=== PATIENT | male | born 1950 | race Caucasian/White ===

== ENCOUNTER 2021-08-08 05:44 | Inpatient (IN) ==
[2021-08-03 11:54] LABS: Basophils # 0.1 10*3/uL (0.0-0.2); Basophils % 0.8 % (0.0-0.8); Eosinophils # 0.3 10*3/uL (0.0-0.87); Eosinophils % 3.3 % (0.00-10.9); Hematocrit 42.2 VOL% (42.0-52.0); Hemoglobin 14.4 GM/DL (14.0-18.0); Immature Granulocytes % 0.3 %; Immature Granulocytes Absolute 0.03 #; Lymphocytes # 2.5 10*3/uL (1.4-4.0); Mean Corpuscular HGB Conc 34.1 GM/DL (32-36); Mean Corpuscular Volume 93.8 FL (87-102); Mean Platelet Volume 11.5 FL (9.6-12.0); Monocytes # 0.9 10*3/uL (0.11-0.8); Monocytes % 10.6 % (1.7-12.7); Platelet Count 190 T/CUMM (130-400); Red Cell Distribution Width 14.8 % (9.3-17.3); White Blood Count 8.9 T/CUMM (4-12)
[2021-08-03 12:02] LABS: Albumin 3.3 G/DL (3.4-5.0); Bilirubin,Total 0.5 MG/DL (0.20-1.00); Osmolality,Calculated 279.4 MOS/KG (273-304); Potassium 3.6 MMOL/L (3.5-5.1)
[2021-08-08] MEDS ORDERED: ALVIMOPAN 12 MG CAPSULE PO ONE (06:00)
[2021-08-08] MEDS ORDERED: cefTRIAXone 1,000 MG in SODIUM CHLORIDE 0.9% 100 ML IV ONE (06:00)
[2021-08-08] MEDS: LACTATED RINGERS 1,000 ML IV SCH ×2 (06:30→10:31)
[2021-08-08] MEDS ORDERED: FAMOTIDINE 20 MG TABLET PO ONE (06:33)
[2021-08-08] MEDS ORDERED: LIDOCAINE 1% 5 ML VIAL ONE (06:37)
[2021-08-08] MEDS ORDERED: BUPIVACAINE MPF 0.25% 30 ML VIAL ONE (06:37)
[2021-08-08] MEDS ORDERED: DEXAMETHASONE 4 MG/1 ML VIAL ONE ×2 (06:37→10:46)
[2021-08-08] MEDS ORDERED: MIDAZOLAM 2 MG/2 ML VIAL ONE (06:47)
[2021-08-08] MEDS ORDERED: fentaNYL 100 MCG/2 ML VIAL ONE (06:47)
[2021-08-08] MEDS ORDERED: ROPIVACAINE 0.5% 30 ML VIAL ONE (06:50)
[2021-08-08] MEDS ORDERED: PHENYLEPHRINE DRIP 20 MG/250 ML PREMIX IV ONE (06:52)
[2021-08-08 08:35] LABS: Mucus,Urine Occasional /LPF (Occasional); Sperm,Urine Occasional /HPF (Negative)
[2021-08-08 08:36] LABS: Bilirubin,Urine Negative (Negative); Blood, Urine Trace mg/dL (Negative); Glucose,Urine (UA) Negative (Negative); Ketones,Urine Negative (Negative); Nitrite,Urine Negative (Negative); Protein,Urine 30 mg/dL (Negative); Urine Appearance Clear (Clear); Urine Color Yellow (Yellow); Urine Specific Gravity 1.025 (1.001-1.035); Urine Urobilinogen 0.2 eU/dL (<2.0)
[2021-08-08] MEDS ORDERED: ROCURONIUM 50 MG/5 ML VIAL IV ONE ×2 (09:36→10:24)
[2021-08-08] MEDS ORDERED: propofoL 200 MG/20 ML VIAL IV ONE (10:24)
[2021-08-08] MEDS ORDERED: LIDOCAINE 2% 5 ML VIAL ONE (10:24)
[2021-08-08] MEDS ORDERED: LACTATED RINGERS 1,000 ML IV ONE (10:25)
[2021-08-08] MEDS ORDERED: SEVOFLURANE 1 UNIT/15 MINUTE INH ONE ×3 (10:25→11:10)
[2021-08-08] MEDS ORDERED: SIMETHICONE CHEW 125 MG TABLET PO PRN (10:41)
[2021-08-08] MEDS ORDERED: PROMETHAZINE 25 MG/1 ML VIAL IM PRN (10:41)
[2021-08-08] MEDS ORDERED: diphenhydrAMINE 50 MG/1 ML VIAL IV PRN (10:41)
[2021-08-08] MEDS ORDERED: HYDROmorphone 1 MG/1 ML SYRINGE IV PRN ×2 (10:41→11:42)
[2021-08-08] MEDS ORDERED: ONDANSETRON 4 MG/2 ML VIAL IV PRN ×2 (10:41→11:42)
[2021-08-08] MEDS ORDERED: GLYCOPYRROLATE 0.4 MG/2 ML VIAL ONE (10:56)
[2021-08-08] MEDS ORDERED: NEOSTIGMINE 10 MG/10 ML VIAL ONE (10:57)
[2021-08-08] MEDS ORDERED: MEPERIDINE 25 MG/1 ML VIAL IV PRN (11:42)
[2021-08-08 11:58] LABS: Basophils # 0.1 10*3/uL (0.0-0.2); Basophils % 0.5 % (0.0-0.8); Eosinophils # 0.1 10*3/uL (0.0-0.87); Eosinophils % 0.3 % (0.00-10.9); Hematocrit 43.1 VOL% (42.0-52.0); Hemoglobin 14.4 GM/DL (14.0-18.0); Immature Granulocytes % 0.5 %; Immature Granulocytes Absolute 0.07 #; Lymphocytes # 2.1 10*3/uL (1.4-4.0); Lymphocytes % 13.8 % (21.2-54.2); Mean Corpuscular HGB Conc 33.4 GM/DL (32-36); Mean Corpuscular Volume 96.6 FL (87-102); Mean Platelet Volume 11.2 FL (9.6-12.0); Monocytes # 0.5 10*3/uL (0.11-0.8); Monocytes % 3.4 % (1.7-12.7); Neutrophils % 81.5 % (38.7-73.9); Platelet Count 142 T/CUMM (130-400); Red Blood Count 4.46 MC/CUMM (3.8-5.5); Red Cell Distribution Width 14.9 % (9.3-17.3); White Blood Count 14.8 T/CUMM (4-12)
[2021-08-08 12:15] LABS: Osmolality,Calculated 274.8 MOS/KG (273-304); Potassium 4.2 MMOL/L (3.5-5.1)
[2021-08-08] MEDS: SODIUM CHLORIDE 0.9% 1,000 ML IV SCH ×2 (12:19→21:04)
[2021-08-08] MEDS: ACETAMINOPHEN 325 MG TABLET PO SCH ×3 (14:02→23:10)
[2021-08-08] MEDS: oxyCODONE/ACETAMINOPHEN 5-325 MG TABLET PO PRN (14:24)
[2021-08-08] MEDS: OXYBUTYNIN 5 MG TABLET PO SCH ×2 (14:24→21:04)
[2021-08-08] MEDS ORDERED: hydrALAZINE 25 MG TABLET PO PRN (16:23)
[2021-08-08] MEDS: METOPROLOL TARTRATE 25 MG TABLET PO SCH (21:04)
[2021-08-08] MEDS: ALVIMOPAN 12 MG CAPSULE PO SCH (21:04)
[2021-08-08] MEDS: DOCUSATE SODIUM 100 MG CAPSULE PO SCH (21:04)
[2021-08-09] MEDS: SODIUM CHLORIDE 0.9% 1,000 ML IV SCH (04:52)
[2021-08-09] MEDS: ACETAMINOPHEN 325 MG TABLET PO SCH ×3 (04:53→17:27)
[2021-08-09] MEDS: cefTRIAXone 1,000 MG in SODIUM CHLORIDE 0.9% 100 ML IV SCH (05:02)
[2021-08-09 05:39] LABS: Basophils % 0.1 % (0.0-0.8); Hematocrit 37.1 VOL% (42.0-52.0); Hemoglobin 12.7 GM/DL (14.0-18.0); Immature Granulocytes % 0.3 %; Immature Granulocytes Absolute 0.04 #; Lymphocytes # 1.9 10*3/uL (1.4-4.0); Mean Corpuscular HGB Conc 34.2 GM/DL (32-36); Mean Corpuscular Volume 95.6 FL (87-102); Mean Platelet Volume 11.1 FL (9.6-12.0); Monocytes # 1.5 10*3/uL (0.11-0.8); Monocytes % 11.5 % (1.7-12.7); Neutrophils % 74.1 % (38.7-73.9); Platelet Count 176 T/CUMM (130-400); Red Blood Count 3.88 MC/CUMM (3.8-5.5); Red Cell Distribution Width 15.1 % (9.3-17.3); White Blood Count 13.2 T/CUMM (4-12)
[2021-08-09 05:54] LABS: Calcium 8.3 MG/DL (8.5-10.1); Osmolality,Calculated 275.5 MOS/KG (273-304); Potassium 3.8 MMOL/L (3.5-5.1)
[2021-08-09] MEDS ORDERED: MAGNESIUM SULF RIDER 4 GM/100 ML PREMIX IV PRN (07:23)
[2021-08-09] MEDS ORDERED: MAGNESIUM SULF RIDER 2 GM/50 ML PREMIX IV PRN (07:23)
[2021-08-09] MEDS ORDERED: POTASSIUM CHLORIDE 20 MEQ TABLET PO ONE (07:30)
[2021-08-09] MEDS: ALVIMOPAN 12 MG CAPSULE PO SCH ×2 (09:14→21:32)
[2021-08-09] MEDS: DOCUSATE SODIUM 100 MG CAPSULE PO SCH ×2 (09:14→21:32)
[2021-08-09] MEDS: allopurinoL 300 MG TABLET PO SCH (09:14)
[2021-08-09] MEDS: OXYBUTYNIN 5 MG TABLET PO SCH ×3 (09:15→21:32)
[2021-08-09] MEDS: amLODIPine 10 MG TABLET PO SCH (09:40)
[2021-08-09] MEDS: METOPROLOL TARTRATE 25 MG TABLET PO SCH ×2 (09:41→21:32)
[2021-08-09] MEDS: oxyCODONE/ACETAMINOPHEN 5-325 MG TABLET PO PRN ×3 (11:52→21:51)
[2021-08-10] MEDS: ACETAMINOPHEN 325 MG TABLET PO SCH ×4 (01:39→17:23)
[2021-08-10 04:49] LABS: Basophils % 0.3 % (0.0-0.8); Eosinophils % 0.1 % (0.00-10.9); Hematocrit 40.9 VOL% (42.0-52.0); Hemoglobin 13.8 GM/DL (14.0-18.0); Immature Granulocytes % 0.5 %; Immature Granulocytes Absolute 0.07 #; Lymphocytes # 2.7 10*3/uL (1.4-4.0); Lymphocytes % 17.2 % (21.2-54.2); Mean Corpuscular HGB Conc 33.7 GM/DL (32-36); Mean Corpuscular Volume 96.7 FL (87-102); Mean Platelet Volume 11.5 FL (9.6-12.0); Monocytes # 1.5 10*3/uL (0.11-0.8); Monocytes % 9.8 % (1.7-12.7); Neutrophils % 72.1 % (38.7-73.9); Platelet Count 192 T/CUMM (130-400); Red Blood Count 4.23 MC/CUMM (3.8-5.5); Red Cell Distribution Width 15.2 % (9.3-17.3); White Blood Count 15.4 T/CUMM (4-12)
[2021-08-10 05:03] LABS: Calcium 9.1 MG/DL (8.5-10.1); Osmolality,Calculated 275.5 MOS/KG (273-304); Potassium 3.9 MMOL/L (3.5-5.1)
[2021-08-10] MEDS: cefTRIAXone 1,000 MG in SODIUM CHLORIDE 0.9% 100 ML IV SCH (06:08)
[2021-08-10] MEDS ORDERED: POTASSIUM CHLORIDE 20 MEQ TABLET PO ONE (07:30)
[2021-08-10] MEDS ORDERED: SIMETHICONE CHEW 125 MG TABLET PO STA (08:31)
[2021-08-10] MEDS: ALVIMOPAN 12 MG CAPSULE PO SCH ×2 (08:34→21:13)
[2021-08-10] MEDS: amLODIPine 10 MG TABLET PO SCH (08:34)
[2021-08-10] MEDS: OXYBUTYNIN 5 MG TABLET PO SCH ×3 (08:35→21:13)
[2021-08-10] MEDS: METOPROLOL TARTRATE 25 MG TABLET PO SCH ×2 (08:35→21:13)
[2021-08-10] MEDS: DOCUSATE SODIUM 100 MG CAPSULE PO SCH ×2 (08:35→21:13)
[2021-08-10] MEDS: allopurinoL 300 MG TABLET PO SCH (08:35)
[2021-08-11] MEDS: ACETAMINOPHEN 325 MG TABLET PO SCH ×2 (00:17→05:29)
[2021-08-11 04:41] LABS: Basophils % 0.3 % (0.0-0.8); Eosinophils # 0.1 10*3/uL (0.0-0.87); Eosinophils % 0.5 % (0.00-10.9); Hematocrit 39.5 VOL% (42.0-52.0); Hemoglobin 13.7 GM/DL (14.0-18.0); Immature Granulocytes % 0.5 %; Immature Granulocytes Absolute 0.06 #; Lymphocytes # 2.1 10*3/uL (1.4-4.0); Lymphocytes % 17.1 % (21.2-54.2); Mean Corpuscular HGB Conc 34.7 GM/DL (32-36); Mean Corpuscular Volume 93.8 FL (87-102); Mean Platelet Volume 11.5 FL (9.6-12.0); Monocytes # 1.4 10*3/uL (0.11-0.8); Monocytes % 11.5 % (1.7-12.7); Neutrophils % 70.1 % (38.7-73.9); Platelet Count 176 T/CUMM (130-400); Red Blood Count 4.21 MC/CUMM (3.8-5.5); Red Cell Distribution Width 14.6 % (9.3-17.3); White Blood Count 12.4 T/CUMM (4-12)
[2021-08-11 04:57] LABS: Calcium 9.1 MG/DL (8.5-10.1); Osmolality,Calculated 269.8 MOS/KG (273-304); Potassium 3.7 MMOL/L (3.5-5.1)
[2021-08-11] MEDS: cefTRIAXone 1,000 MG in SODIUM CHLORIDE 0.9% 100 ML IV SCH (05:38)
[2021-08-11 07:37] VITALS: BP 140/63
[2021-08-11] MEDS: OXYBUTYNIN 5 MG TABLET PO SCH (09:05)
[2021-08-11] MEDS: allopurinoL 300 MG TABLET PO SCH (09:05)
[2021-08-11] MEDS: METOPROLOL TARTRATE 25 MG TABLET PO SCH (09:05)
[2021-08-11] MEDS: amLODIPine 10 MG TABLET PO SCH (09:05)
[2021-08-11] MEDS: ALVIMOPAN 12 MG CAPSULE PO SCH (09:05)
[2021-08-11] MEDS: DOCUSATE SODIUM 100 MG CAPSULE PO SCH (09:05)
== END 2021-08-11 10:30 | disposition home or self-care (01) | DRG 708 ==
LOC: N.OR 05:44 → N.SDSINP 05:46 → N.3E 12:56
PROVIDERS: ADMIT Surgery; ATTEND Surgery